=== PATIENT | male | born 1985 | race African-American/Black ===

== ENCOUNTER 2017-05-21 20:59 | Inpatient (IN) | payer OTHER ==
[~2017-05-21] VITALS: Ht 157.5 cm; Wt 69.0 kg
[2017-05-21 23:19] LABS: BASOPHIL % 0.2 % (0-2); PLATELET COUNT 112 x10^3mcL (130-400); RED CELL DISTRIBUTION WIDTH 14.6 % (11.5-14.5)
[2017-05-21 23:26] LABS: CALCIUM 8.2 mg/dL (8.5-10.1); CARBON DIOXIDE 28.1 mmol/L (21-32); CHLORIDE SERUM 95 mmol/L (98-107); CREATININE SERUM 1.1 mg/dL (0.7-1.3); GFR1 > 60 mL/min; GLUCOSE SERUM 98 mg/dL (74-106); POTASSIUM SERUM 3.5 mmol/L (3.5-5.1); SODIUM SERUM 129 mmol/L (136-145)
[2017-05-21 23:29] LABS: ALKALINE PHOSPHATASE 54 U/L (46-116); ALT/SGPT 13 U/L (16-63); AST/SGOT 14 U/L (15-37); BILIRUBIN TOTAL 0.5 mg/dL (0.20-1.00); TOTAL PROTEIN, SERUM 6.7 g/dL (6.4-8.2)
[2017-05-21 23:32] LABS: CHOLESTEROL 76 mg/dL (<200); HDL CHOLESTEROL 23 mg/dL (40-60)
[2017-05-22] MEDS ORDERED: MIRALAX17 GM/Dose PO (00:08)
[2017-05-22] MEDS ORDERED: HALOPERIDOL5 MG PO (00:08)
[2017-05-22] MEDS ORDERED: CLONAZEPAM1 MG PO (00:09)
[2017-05-22] MEDS ORDERED: BENZTROPINE MESY2 MG PO (00:09)
[2017-05-22] MEDS ORDERED: NEIGH PO (00:09)
[2017-05-22] MEDS ORDERED: MAPAP325 MG PO (00:10)
[2017-05-22] MEDS ORDERED: ATENOLOL25 MG PO (00:11)
[2017-05-22] MEDS ORDERED: CLOTRIMAZOLE TR10 M1 PO (00:11)
[2017-05-22] MEDS ORDERED: ABILIFY5 M1 PO (00:12)
[2017-05-22] MEDS ORDERED: TRAZODONE50 M1 PO (00:13)
[2017-05-22] MEDS ORDERED: RISPERIDONE1 MG PO (00:13)
[2017-05-22] MEDS ORDERED: DEPAKOTE ER250 M1 PO (00:13)
[2017-05-22] MEDS ORDERED: ADV200 PO (00:14)
[2017-05-22] MEDS ORDERED: OLANZAPINE20 M1 PO (00:14)
[2017-05-22 01:22] LABS: MAGNESIUM 1.5 mg/dL (1.8-2.4); PHOSPHOROUS 2.7 mg/dL (2.5-4.9)
[2017-05-22 01:23] LABS: CHOLESTEROL/HDL RATIO 3.3
[2017-05-22 01:32] LABS: T3 TOTAL 0.65 ng/mL
[2017-05-22 01:37] VITALS: BP 105/57
[2017-05-22 01:37] LABS: FREE T4 1.03 ng/dL (0.76-1.46); FREE THYROXINE INDEX 2.1 ug/dL (1.4-4.5); T4(THYROXINE) 5.7 ug/dL (4.7-13.3)
[2017-05-22 01:55] VITALS: BP 105/57
[2017-05-22 05:30] VITALS: BP 104/61
[2017-05-22 08:12] LABS: microscopic required? NO
[2017-05-22 08:41] LABS: BASOPHIL % 0.2 % (0-2)
[2017-05-22 08:46] LABS: CALCIUM 7.9 mg/dL (8.5-10.1); CARBON DIOXIDE 26.4 mmol/L (21-32); CHLORIDE SERUM 109 mmol/L (98-107); GFR1 > 60 mL/min; GLUCOSE SERUM 99 mg/dL (74-106); MAGNESIUM 2.4 mg/dL (1.8-2.4); PHOSPHOROUS 2.5 mg/dL (2.5-4.9); POTASSIUM SERUM 4.3 mmol/L (3.5-5.1); SODIUM SERUM 147 mmol/L (136-145)
[2017-05-22 08:47] LABS: PLATELET COUNT 108 x10^3mcL (130-400); RED CELL DISTRIBUTION WIDTH 14.7 % (11.5-14.5)
[2017-05-22 08:47] LABS: UA SPECIFIC GRAVITY <=1.005 (1.005-1.035); urine erythrocyte NEGATIVE (NEGATIVE)
[2017-05-22 09:02] LABS: AMPHETAMINE QUAL UR NONE DETECTED (NEG <=1000)
[2017-05-22 10:00] VITALS: BP 101/44
[2017-05-22 22:48] VITALS: BP 93/54
[2017-05-23 06:20] LABS: BASOPHIL % 0.3 % (0-2)
[2017-05-23 06:48] LABS: PLATELET COUNT 108 x10^3mcL (130-400); RED CELL DISTRIBUTION WIDTH 14.9 % (11.5-14.5)
[2017-05-23 06:58] VITALS: BP 99/60
[2017-05-23 07:03] LABS: CALCIUM 8.2 mg/dL (8.5-10.1); CARBON DIOXIDE 27.3 mmol/L (21-32); CHLORIDE SERUM 106 mmol/L (98-107); CREATININE SERUM 0.9 mg/dL (0.7-1.3); GFR1 > 60 mL/min; GLUCOSE SERUM 88 mg/dL (74-106); MAGNESIUM 2.4 mg/dL (1.8-2.4); POTASSIUM SERUM 4.1 mmol/L (3.5-5.1); SODIUM SERUM 141 mmol/L (136-145)
[2017-05-23 09:33] VITALS: BP 98/60
[2017-05-23 13:19] VITALS: Ht 157.5 cm; Wt 69.0 kg
[2017-05-23 13:29] VITALS: BP 120/81
[2017-05-23 17:14] VITALS: BP 92/52
[2017-05-23 21:52] VITALS: BP 99/60
[2017-05-24 06:04] VITALS: BP 109/71
[2017-05-24 07:48] LABS: CALCIUM 8.7 mg/dL (8.5-10.1); CHLORIDE SERUM 113 mmol/L (98-107); CREATININE SERUM 0.9 mg/dL (0.7-1.3); GFR1 > 60 mL/min; GLUCOSE SERUM 88 mg/dL (74-106); MAGNESIUM 2.2 mg/dL (1.8-2.4); PHOSPHOROUS 3.6 mg/dL (2.5-4.9); POTASSIUM SERUM 4.6 mmol/L (3.5-5.1); SODIUM SERUM 152 mmol/L (136-145)
[2017-05-24 08:09] LABS: BASOPHIL % 0.3 % (0-2); PLATELET COUNT 141 x10^3mcL (130-400)
[2017-05-24 08:10] LABS: RED CELL DISTRIBUTION WIDTH 15.1 % (11.5-14.5)
[2017-05-24 17:51] VITALS: BP 94/71
[2017-05-24 21:32] VITALS: BP 94/50
[2017-05-25 06:06] VITALS: BP 98/48
[2017-05-25 08:00] VITALS: BP 102/79
[2017-05-25] MEDS ORDERED: METFORMIN HCL500 MG PO (09:40)
[2017-05-25] MEDS ORDERED: LEVAQUIN750 MG PO (09:44)
[2017-05-25] MEDS ORDERED: CLINDAMYCIN HC300 MG PO (09:49)
[2017-05-25] MEDS ORDERED: LAC PO (09:50)
[2017-05-25 10:55] VITALS: BP 102/79
== END 2017-05-25 14:10 | DRG 720 ==
LOC: ED 20:59 → DU 05-22 00:28 → MU 05-22 00:28 → DU 05-22 01:24 → MU 05-22 11:58
PROVIDERS: Emergency Medicine; ADMIT Family Medicine
DX: A41.9 Sepsis, unspecified organism (principal); J69.0 Pneumonitis due to inhalation of food and vomit; E87.8 Other disorders of electrolyte and fluid balance, not elsewhere classified; D69.6 Thrombocytopenia, unspecified; E44.0 Moderate protein-calorie malnutrition; E87.1 Hypo-osmolality and hyponatremia; E83.42 Hypomagnesemia; F79 Unspecified intellectual disabilities; I10 Essential (primary) hypertension; F29 Unspecified psychosis not due to a substance or known physiological condition; R09.02 Hypoxemia; Z68.27 Body mass index [BMI] 27.0-27.9, adult
CPT/HCPCS: 82962; 83880; 84439; C9113; J0456; J0696; J2060; J2543; J3475; J7030; J7050; J7620; Q0092